=== PATIENT | female | born 2000 | race Caucasian/White ===

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

== ENCOUNTER 2021-05-11 18:31 | Emergency (ER) | payer OTHER ==
[~2021-05-11] VITALS: Ht 167.6 cm; Wt 63.6 kg
[2021-05-11 18:49] VITALS: TEMP 98.7
[2021-05-11] MEDS ORDERED: ZOFRAN ODT4 MG PO (22:30)
[2021-05-11] MEDS ORDERED: FIORICET 325 MG1 TA1 PO (22:30)
[2021-05-11 22:51] VITALS: BP 124/75; PULSE 86
== END 2021-05-11 22:53 | disposition home or self-care (01) ==
LOC: COL.ER 18:31
DX: G43.909 Migraine, unspecified, not intractable, without status migrainosus (principal)
CPT/HCPCS: J1200; J1885; J2765; J7030

== ENCOUNTER 2024-01-23 17:23 | Emergency (ER) | payer OTHER ==
[~2024-01-23] VITALS: Ht 167.6 cm; Wt 68.2 kg
[~2024-01-23 17:23] MED LIST changes: +FIORICET 325 MG1 TA1 PO; +ZOFRAN ODT4 MG PO
[2024-01-23 17:38] VITALS: TEMP 98.3
[2024-01-23] MEDS ORDERED: NS 1,000 ML IV ONE (18:00)
[2024-01-23] MEDS ORDERED: Ondansetron 4 MG/2 ML VIAL IV ONE (18:00)
[2024-01-23 18:07] LABS: BASO % 0.3 % (0.0-2.0); EOS % 0.2 % (0.0-4.0); GRAN # 10.5 K/mm3 (1.4-6.5); GRAN % 89.7 % (42.2-75.2); HEMATOCRIT 42.8 % (37.0-47.0); LYMPH # 0.5 K/mm3 (1.2-3.4); LYMPH % 4.3 % (20.0-51.0); MEAN CELL VOLUME 86 fl (80.0-100.0); MEAN CORPUSCULAR HEMOGLOBIN 30 pg (27-31); MEAN CORPUSCULAR HGB CONC 35 g/dl (33.0-37.0); MEAN PLATELET VOLUME 9.9 fl (7.4-10.4); MONO # 0.6 K/mm3 (0.1-0.6); PLATELET COUNT 251 K/mm3 (130-400); RED BLOOD COUNT 4.98 M/mm3 (4.10-5.30); REDCELL DISTRIBUTION WIDTH-CV 12.7 % (11.5-14.5)
[2024-01-23] MEDS ORDERED: Loperamide 2 MG CAP PO ONE (18:15)
[2024-01-23 18:21] LABS: ALBUMIN 3.9 g/dL (3.5-5.0); BILIRUBIN,TOTAL 0.8 mg/dL (0.2-1.2); CALCIUM 8.9 mg/dL (8.4-10.2); CREATININE, serum 0.7 mg/dL (0.57-1.11); POTASSIUM 3.8 mEq/L (3.5-4.5); TOTAL PROTEIN 6.8 g/dl (6.2-8.1)
[2024-01-23 18:53] LABS: COLLECTION METHOD CLEAN CATCH
[2024-01-23 19:00] LABS: PH 5.5 (5.0-8.5); URINE APPEARANCE CLEAR (CLEAR/HAZY); URINE BLOOD NEGATIVE (NEGATIVE); URINE COLOR YELLOW (YELLOW); URINE GLUCOSE NEGATIVE (NEGATIVE); URINE KETONE TRACE (NEGATIVE); URINE NITRATE NEGATIVE (NEGATIVE); URINE PROTEIN(semi-quant) NEGATIVE (NEGATIVE); URINE UROBILINOGEN 0.2 E.U/dL (0.2-1.0)
[2024-01-23] MEDS ORDERED: ANTI-DIARRHEAL2 MG PO (19:27)
[2024-01-23] MEDS ORDERED: ZOFRAN ODT4 MG PO (19:27)
[2024-01-23] MEDS ORDERED: Home Ondansetron ODT 4 MG #2 ODT/PACK PO ONE (19:30)
[2024-01-23 19:42] VITALS: BP 127/74; PULSE 98
== END 2024-01-23 19:47 | disposition home or self-care (01) ==
LOC: COL.ER 17:23
PROVIDERS: Physician Assistant
DX: R19.7 Diarrhea, unspecified (principal); R11.2 Nausea with vomiting, unspecified; D72.829 Elevated white blood cell count, unspecified
CPT/HCPCS: J2405; J7030